=== PATIENT | female | born 1975 | race Caucasian/White ===

== ENCOUNTER 2023-05-25 10:13 | Outpatient (RCR) | payer BC, SELFPAY | END 2023-05-25 23:59 | disposition home or self-care (01) | LOC: RPT 10:13 | PROVIDERS: ATTENDING PHYSICIAN Internal Medicine Rheumatology; FAMILY PHYSICIAN Internal Medicine | DX: M54.2 Cervicalgia (principal); G44.86 Cervicogenic headache; Z73.6 Limitation of activities due to disability | CPT/HCPCS: 97010; 97110; 97112; 97140; 97161; 97530 ==

== ENCOUNTER 2023-06-14 12:02 | Outpatient (RCR) | payer BC, SELFPAY | END 2023-06-14 23:59 | disposition home or self-care (01) | LOC: RPT 12:02 | PROVIDERS: ATTENDING PHYSICIAN Internal Medicine Rheumatology; FAMILY PHYSICIAN Internal Medicine | DX: M54.2 Cervicalgia (principal); G44.86 Cervicogenic headache; Z73.6 Limitation of activities due to disability | CPT/HCPCS: 97010; 97110; 97112; 97140 ==

== ENCOUNTER → 2023-07-12 08:00 | Outpatient (REF) | payer BC, SELFPAY ==
[2023-07-12 09:22] LABS: Urine Albumin Negative (Neg - Trace); Urine Bilirubin Negative (Negative); Urine Character Clear (Clear); Urine Color Yellow; Urine Glucose Negative (Negative); Urine Ketone Negative (Negative); Urine Leukocyte Negative (Negative); Urine Nitrite Negative (Negative); Urine Occult Blood Negative (Negative); Urine Specific Gravity 1.015 (<1.030); Urine Urobilinogen Negative (Neg - 1+); Urine pH 6.5 (5.0-9.0)
[2023-07-12 09:36] LABS: % Basophils 0.8 % (0-2); % Immature Granulocytes 0.3 % (0-0.5); % Lymphocytes 40.6 % (20.5-51.1); % Monocytes 8.4 % (1.7-9.3); % Neutrophils 46.9 % (42.2-75.2); Absolute Eosinophils 0.1 10^3/uL (0-0.7); Absolute Lymphocytes 1.5 10^3/uL (1.2-3.4); Absolute Monocytes 0.3 10^3/uL (0.1-0.6); Absolute Neutrophils 1.7 10^3/uL (1.4-6.5); Hematocrit 40.6 % (37.0-47.0); Hemoglobin 13.5 g/dL (12.0-16.0); Mean Corp Hgb Conc. 33.3 g/dL (33.0-37.0); Mean Corpuscular Hgb 30.7 pg (27.0-31.0); Mean Corpuscular Volume 92.3 fL (81.0-99.0); Mean Platelet Volume 10.6 fL (7.4-10.4); Nucleated Red Blood Cells % 0 %; Platelet Count 186 10^3/uL (130-400); Red Cell Dist. Width 13.9 % (11.5-14.5); White Blood Cell Count 3.7 10^3/uL (4.8-10.8)
[2023-07-12 10:20] LABS: ALT (SGPT) 12 U/L (0-35); AST (SGOT) 24 U/L (14-36); Albumin 4.4 g/dl (3.5-5.0); Alkaline Phosphatase 42 U/L (38-126); Blood Urea Nitrogen 15 mg/dl (7-17); Calcium 9.2 mg/dl (8.4-10.2); Carbon Dioxide 25 mmol/L (22-30); Chloride 101 mmol/L (98-107); Glucose 96 mg/dl (70-99); HDL Cholesterol 90 mg/dl; LDL Cholesterol, Calculated 104 mg/dl; Magnesium 2.1 mg/dl (1.6-2.3); Potassium 4.5 mmol/L (3.5-5.1); Sodium 134 mmol/L (135-145); Total Bilirubin 0.6 mg/dl (0.2-1.3); Total Cholesterol 204 mg/dl (50-199); Triglyceride 52 mg/dl (10-149); Very Low Density Lipoprotein 10 mg/dl (0-30); eGFR > 60.00
[2023-07-12 10:34] LABS: Free T4 0.79 ng/dl (0.78-2.19); Vitamin D, 25-OH*** 33.5 ng/mL (30-80)
[2023-07-12 10:57] LABS: Microalbumin, Random Urine <0.6 mg/dl (0.6-1.7)
[2023-07-12 11:23] LABS: Folate 13.6 ng/ml (2.76-20); Vitamin B12 399 pg/ml (239-931)
[2023-07-12 12:48] LABS: Glycohemoglobin (HgbA1c) 5.7 % (4.0-5.6)
== END ==
LOC: REG 08:00
PROVIDERS: ATTENDING PHYSICIAN Internal Medicine
DX: E06.3 Autoimmune thyroiditis (principal); I10 Essential (primary) hypertension; F32.9 Major depressive disorder, single episode, unspecified; J30.1 Allergic rhinitis due to pollen; I87.2 Venous insufficiency (chronic) (peripheral)
CPT/HCPCS: 36415; 80053; 80061; 81003; 82043; 82306; 82570; 82607; 82746; 83036; 83735; 84439; 84443; 85025

== ENCOUNTER 2023-07-13 10:07 | Outpatient (RCR) | payer BC, SELFPAY | END 2023-07-13 11:12 | disposition home or self-care (01) | LOC: RPT 10:07 | PROVIDERS: ATTENDING PHYSICIAN Internal Medicine Rheumatology; FAMILY PHYSICIAN Internal Medicine | DX: M54.2 Cervicalgia (principal); G44.86 Cervicogenic headache; Z73.6 Limitation of activities due to disability | CPT/HCPCS: 97010; 97110; 97112; 97140 ==

== ENCOUNTER → 2024-01-20 07:33 | Outpatient (REF) | payer BC, SELFPAY ==
[2024-01-20 09:16] LABS: Urine Albumin Negative (Neg - Trace); Urine Bilirubin Negative (Negative); Urine Character Clear (Clear); Urine Color Yellow; Urine Glucose Negative (Negative); Urine Ketone Negative (Negative); Urine Leukocyte Negative (Negative); Urine Nitrite Negative (Negative); Urine Occult Blood Trace (Negative); Urine Specific Gravity 1.025 (<1.030); Urine Urobilinogen Negative (Neg - 1+)
[2024-01-20 09:25] LABS: % Basophils 0.7 % (0-2); % Eosinophils 2.7 % (0-6); % Lymphocytes 41.5 % (20.5-51.1); % Monocytes 9.5 % (1.7-9.3); % Neutrophils 45.6 % (42.2-75.2); Absolute Eosinophils 0.1 10^3/uL (0-0.7); Absolute Lymphocytes 1.7 10^3/uL (1.2-3.4); Absolute Monocytes 0.4 10^3/uL (0.1-0.6); Absolute Neutrophils 1.8 10^3/uL (1.4-6.5); Hematocrit 40.5 % (37.0-47.0); Hemoglobin 13.8 g/dL (12.0-16.0); Mean Corp Hgb Conc. 34.1 g/dL (33.0-37.0); Mean Corpuscular Hgb 31.2 pg (27.0-31.0); Mean Corpuscular Volume 91.6 fL (81.0-99.0); Mean Platelet Volume 10.3 fL (7.4-10.4); Nucleated Red Blood Cells % 0 %; Platelet Count 202 10^3/uL (130-400); Red Blood Cell Count 4.42 10^6/uL (4.20-5.40); Red Cell Dist. Width 13.4 % (11.5-14.5)
[2024-01-20 09:36] LABS: Microalbumin, Random Urine 0.8 mg/dl (0.6-1.7); Microalbumin/creatinine Ratio 4.6 mg/g
[2024-01-20 10:00] LABS: Urine Red Blood Cell 0-2 /HPF (0-2)
[2024-01-20 10:02] LABS: ALT (SGPT) 20 U/L (0-35); AST (SGOT) 25 U/L (14-36); Albumin 4.6 g/dl (3.5-5.0); Alkaline Phosphatase 35 U/L (38-126); Blood Urea Nitrogen 21 mg/dl (7-17); Calcium 8.9 mg/dl (8.4-10.2); Carbon Dioxide 25 mmol/L (22-30); Chloride 104 mmol/L (98-107); Glucose 82 mg/dl (70-99); HDL Cholesterol 88 mg/dl; LDL Cholesterol, Calculated 109 mg/dl; Magnesium 2.2 mg/dl (1.6-2.3); Potassium 4.8 mmol/L (3.5-5.1); Sodium 140 mmol/L (135-145); Total Bilirubin 0.3 mg/dl (0.2-1.3); Total Cholesterol 204 mg/dl (50-199); Total Protein 7.4 g/dl (6.3-8.2); Triglyceride 39 mg/dl (10-149); Very Low Density Lipoprotein 7 mg/dl (0-30); eGFR > 60.00
[2024-01-20 10:15] LABS: Vitamin D, 25-OH*** 37.3 ng/mL (30-80)
[2024-01-20 10:28] LABS: TSH 2.88 uIU/ml (0.47-4.68)
[2024-01-20 10:48] LABS: Vitamin B12 898 pg/ml (239-931)
[2024-01-20 11:27] LABS: Glycohemoglobin (HgbA1c) 4.9 % (4.0-5.6)
== END ==
LOC: REG 07:33
PROVIDERS: ATTENDING PHYSICIAN Internal Medicine
DX: E06.3 Autoimmune thyroiditis (principal); F32.9 Major depressive disorder, single episode, unspecified; J30.1 Allergic rhinitis due to pollen; I10 Essential (primary) hypertension; I87.2 Venous insufficiency (chronic) (peripheral)
CPT/HCPCS: 36415; 80053; 80061; 81003; 81015; 82043; 82306; 82570; 82607; 83036; 83735; 84439; 84443; 85025

== ENCOUNTER → 2024-06-27 12:22 | Outpatient (REF) | payer BC, SELFPAY ==
[2024-06-27 13:04] LABS: % Basophils 0.6 % (0-2); % Eosinophils 1.3 % (0-6); % Immature Granulocytes 0.2 % (0-0.5); % Lymphocytes 35.6 % (20.5-51.1); % Monocytes 7.9 % (1.7-9.3); % Neutrophils 54.4 % (42.2-75.2); Absolute Eosinophils 0.1 10^3/uL (0-0.7); Absolute Lymphocytes 1.7 10^3/uL (1.2-3.4); Absolute Monocytes 0.4 10^3/uL (0.1-0.6); Absolute Neutrophils 2.6 10^3/uL (1.4-6.5); Hematocrit 38.8 % (37.0-47.0); Hemoglobin 13.2 g/dL (12.0-16.0); Mean Corpuscular Hgb 30.9 pg (27.0-31.0); Mean Corpuscular Volume 90.9 fL (81.0-99.0); Mean Platelet Volume 10.1 fL (7.4-10.4); Nucleated Red Blood Cells % 0 %; Platelet Count 167 10^3/uL (130-400); Red Blood Cell Count 4.27 10^6/uL (4.20-5.40); Red Cell Dist. Width 13.5 % (11.5-14.5); White Blood Cell Count 4.7 10^3/uL (4.8-10.8)
[2024-06-27 13:29] LABS: Erythrocyte Sed Rate 8 mm/hour (0-20)
[2024-06-27 13:41] LABS: ALT (SGPT) 33 U/L (0-35); AST (SGOT) 32 U/L (14-36); Albumin 4.8 g/dl (3.5-5.0); Alkaline Phosphatase 42 U/L (38-126); Blood Urea Nitrogen 15 mg/dl (7-17); Calcium 9.4 mg/dl (8.4-10.2); Carbon Dioxide 25 mmol/L (22-30); Chloride 103 mmol/L (98-107); Glucose 82 mg/dl (70-99); Sodium 139 mmol/L (135-145); Total Bilirubin 0.6 mg/dl (0.2-1.3); Total Protein 7.4 g/dl (6.3-8.2); eGFR > 60.00
[2024-06-27 13:43] LABS: C-Reactive Protein < 5.00 mg/L (0.0-10.00)
== END ==
LOC: REG 12:22
PROVIDERS: ATTENDING PHYSICIAN Internal Medicine
DX: M31.6 Other giant cell arteritis (principal)
CPT/HCPCS: 36415; 80053; 85025; 85652; 86140

== ENCOUNTER → 2024-07-20 07:45 | Outpatient (REF) | payer BC, SELFPAY | LOC: WDC 07:45 | PROVIDERS: ATTENDING PHYSICIAN Internal Medicine | DX: Z12.31 Encounter for screening mammogram for malignant neoplasm of breast (principal) | CPT/HCPCS: 77063; 77067 ==

== ENCOUNTER 2025-03-16 10:43 | Emergency (ER) | payer OTHER, SELFPAY ==
[2025-03-16 10:55] VITALS: BP 144/83
[2025-03-16 11:13] LABS: Hematocrit 42.6 % (37.0-47.0); Hemoglobin 14.3 g/dL (12.0-16.0); Mean Corp Hgb Conc. 33.6 g/dL (33.0-37.0); Mean Corpuscular Volume 90.1 fL (81.0-99.0); Nucleated Red Blood Cells % 0 %; Platelet Count 194 10^3/uL (130-400); Red Cell Dist. Width 13.5 % (11.5-14.5)
[2025-03-16 11:27] LABS: ALT (SGPT) 34 U/L (0-35); AST (SGOT) 32 U/L (14-36); Albumin 4.8 g/dl (3.5-5.0); Alkaline Phosphatase 43 U/L (38-126); Blood Urea Nitrogen 13 mg/dl (7-17); Calcium 9.3 mg/dl (8.4-10.2); Carbon Dioxide 28 mmol/L (22-30); Chloride 106 mmol/L (98-107); Glucose 97 mg/dl (70-99); Potassium 4.4 mmol/L (3.5-5.1); Sodium 139 mmol/L (135-145); Total Protein 8.0 g/dl (6.3-8.2); eGFR > 60.00
[2025-03-16] MEDS: TYLENOL 650 MG PO (12:28)
[2025-03-16 12:31] LABS: C-Reactive Protein < 5.00 mg/L (0.0-10.00)
[2025-03-16 12:36] VITALS: BP 138/84
[2025-03-16 13:00] VITALS: BP 138/84
--- NOTE | 2025-03-16 13:04 | CON.NEURO ---
Neuro Assessment/Plan
Assessment
Portia Campoverde is a 49 yo F PMH HTN, cervicalgia presenting with headache.
Symptoms described as progressive moderate pressure in her left retro-orbital and frontal region, associated with photophobia, improved by lying in a dark room. Symptoms most consistent with acute migraine without aura No clear red flag features on
history or exam, apart from new headache onset. Although she appears to have prominent superficial temporal arteries (prompting admission) - several features argues against giant cell arteritis: negative ESR, absence of jaw pain or visual symptoms,
and younger age. Tension type headache also possible. Lower suspicion for other acute causes (e.g. ICH) given gradual progression, although NCHCT reasonable to rule out acute pathology.
Plan
- symptomatic migraine management:
- Normal saline bolus
- Magnesium 2g IV x1 --> if improved, can continue with magnesium 400 mg daily
- Sumatriptan 50 mg PRN --> if improved can continue outpatient (take 1 tablet PRN at onset of migraines, repeat x1 after 10 minutes if not improved)
- If refractory then dexamethasone 10 mg x1 --> if improved, can prescribe methylprednisolone dose pack
- No indication for standing preventative given first migraine
- obtain non-contrast head CT +/- CTAH&N (recent CTA without acute pathology in 2022)
- can likely defer MRI brain for now, but reasonable to consider outpatient
- BP goal normotension
- check EKG, ensure QTC <500
Consultation
Order
Date of Consultation: 03/16/25
Requesting Provider: [facility]
Reason for Consult: Headache
Subjective/Objective
Subjective Data
Date of Service: March 16, 2025
Portia Campoverde is a 49 yo F PMH HTN, cervicalgia presenting with headache.
On the day prior to arrival at 1600, she reported progressive onset headache. She describes symptoms as '6/10' 'dull, aching, pulling, pressure' on the left retro-orbital region, radiating frontal. Symptoms are associated with photophobia, but not
phonophobia, visual aura, jaw claudication, scotoma, nausea, emesis. She reports that her eyes feel 'heavy' but not 'blurry'. She also reports a pulsating sensation in the left side of her head, noting prominent superficial temporal blood vessels.
Symptoms are not worsened with valsalva, non-positional, and did not wake up out of sleep. Symptoms are improved by lying in a dark room but are not improved with acetominophen or celecoxib.
She denies prior history of migraines, including during childhood/teenage years, although was previously evaluated for cervicalagia, treated with PT.
Objective Data
Vital Signs
Temp Pulse Resp BP Pulse Ox
36.9 C 62 18 144/83 100
03/16/25 10:55 03/16/25 10:55 03/16/25 10:55 03/16/25 10:55 03/16/25 10:55
Lab Results
03/16/25 11:05
03/16/25 11:05
Sodium 139 mmol/L (135-145) 03/16/25 11:05
Potassium 4.4 mmol/L (3.5-5.1) 03/16/25 11:05
BUN 13 mg/dl (7-17) 03/16/25 11:05
Glucose 97 mg/dl (70-99) 03/16/25 11:05
Calcium 9.3 mg/dl (8.4-10.2) 03/16/25 11:05
ESR 2
TSH 5.61
Patient Allergies
ciprofloxacin (From Cipro) Allergy (Verified 03/16/25 10:57)
Itching, Rash
NCHCT, CTAH&N (05/12 - 05/13 2022)
Very short segment of approximately 50% stenosis at the junction of left P1 and P2 segments. Otherwise, no CT angiographic abnormality of the arterial structures of the head and neck.
Negative unenhanced brain CT
Past History
Past Medical / Surgical History
Past Medical History: Other (cervicalgia)
Social History
Employment: Employed
Review of Systems
-
All other systems: Reviewed and negative
Physical Exam
-
Awake, alert, and grossly oriented
CN II-XII intact. Fundoscopic exam limited by miosis bilaterally.
Intact strength and sensation in the bilateral upper and lower extremities.
No ataxia on FNF
Tenderness to palpation on the left frontal region.
Data Reviewed
-
CT-A: Report Reviewed and Image Reviewed
CT Head: Report Reviewed and Image Reviewed
CT Cervical Spine: Report Reviewed and Image Reviewed
Labs: Report Reviewed
Medications
-
Home Medications
�Medication �Instructions �Recorded
Multivitamin: 1 tab PO DAILY 01/22/21
cetirizine 10 mg tablet 10 mg PO PRN PRN allergies 01/22/21
venlafaxine 37.5 mg 37.5 mg PO DAILY 01/27/21
capsule,extended release 24 hr
(Effexor XR)
acetaminophen 325 mg tablet 650 mg (2 x 325 mg) PO Q4HPRN PRN 01/28/21
mild pain
[2025-03-16 14:00] VITALS: BP 127/78
[2025-03-16] MEDS: REGLAN 10 MG IV (14:43)
[2025-03-16] MEDS: TORADOL 15 MG IV (14:43)
[2025-03-16] MEDS: BENADRYL 12.5 MG IV (14:43)
[2025-03-16] MEDS: MAGNESIUM SULFATE 102 GRAMS IV (14:44)
[2025-03-16] MEDS: NSS 500 IV (14:44)
[2025-03-16 15:00] VITALS: BP 138/80
--- NOTE | 2025-03-16 15:06 | ED.GENMED ---
History of Present Illness
<Keo Kang MD - Last Filed: 03/16/25 18:33>
General
Chief Complaint: Headache
Source: patient and spouse
Exam Limitations: none
Time Seen by Provider: 03/16/25 12:01
Nursing documentation reviewed up to this point in time: agreed with
History of Present Illness
History of Present Illness:
Patient presents to ED secondary to 24-hour history of persistent/worsening left frontal/temporal headache, along with prominent artery over her moravian, as well as bilateral eyelid swelling sensation with pressure. Denies fever or chills. Denies
dizziness. Denies nausea or vomiting. Denies loss of sensation or weakness. Denies difficulty with speech or swallowing. Denies difficulty with ambulation. Denies recent illness. Denies recent change in medications or diet. Patient has had
history of posterior headache secondary to cervical stenosis, which has required treatment in the past. Today's headache, patient states is different in quality and severity. Denies recent change in activities.
Past History
<Keo Kang MD - Last Filed: 03/16/25 18:33>
Past History
ED Past Medical History: Psychiatric (depression)
ED Past Surgical History: Gynecological (endometrial ablation, hysterectomy, d & c), Tonsilectomy and Other (IVF x 2, saphenous vein ablation right leg)
Social History
Tobacco: Non-smoker
Alcohol: None
Drug: None
Personal:
Living: with family
Review of Systems
<Keo Kang MD - Last Filed: 03/16/25 18:33>
Review of Systems
Allergies reviewed?: Yes
All Other Systems: ROS reviewed and negative except as documented in HPI and ROS
Constitutional: Reports no symptoms; Denies fever or chills
Respiratory: Reports no symptoms
Cardiac: Reports no symptoms
ABD/GI: Reports no symptoms
Musculoskeletal: Reports no symptoms
Skin: Reports no symptoms
Neurological: Reports headache and other (Photophobia)
Phy Exam
<Keo Kang MD - Last Filed: 03/16/25 18:33>
Physical Exam
Physical Exam:
Physical Exam
General: mild painful distress, not acutely ill. afebrile
Head: nc/at. eomi
Neck: supple. normal range of motion
Heart: s1/s2 regular rate and rhythm
Lungs: no acute respiratory distress. clear bilaterally
Abdomen: normal bowel sounds. not tender.
Neuro: alert and oriented x 3. no focal neurological deficits
Skin: no rash
Psychiatric: well kept. interactive and cooperative
Extremities: no edema. no calf tenderness.
Course
<Keo Kang MD - Last Filed: 03/16/25 18:33>
Orders/Labs/Results
Orders:
Orders
03/16/25 11:05
C-Reactive Protein Urgent
Complete Blood Count/With Diff Urgent
Comprehensive Metabolic Panel Urgent
Erythrocyte Sed Rate Urgent
Free T4 Urgent
TSH Reflex To Free T4 Urgent
03/16/25 12:17
Acetaminophen [Tylenol] 650 mg PO NOW STA
03/16/25 12:18
NEUROLOGY CONSULT Urgent
Consulting Provider: Ricki Parker
Was physician already notified: Yes
Reason for consult: headache
03/16/25 14:30
Diphenhydramine [Benadryl] 12.5 mg IV NOW STA
Ketorolac [Toradol] 15 mg IV NOW STA
Metoclopramide [Reglan] 10 mg IV NOW STA
03/16/25 14:31
0.9% Sodium Chloride 500 ml [Nss] 500 ml IV BOLUS
Magnesium Sulfate 1 grams 0.9% Sodium Chloride 100 ml [Nss] 100 ml IV NOW
03/16/25 14:37
Magnesium Sulfate 1 G/D5w [Magnesium Sulfate] 1 gm in 100 ml .ROUTE .STK-MED
Abnormal Lab Results
03/16/25
11:05
WBC 4.2 L 10^3/uL
(4.8-10.8)
TSH (Reflex) 5.61 H uIU/ml
(0.47-4.68)
03/16/25 11:05
03/16/25 11:05
Vital Signs
Initial and Last Documented VS:
Initial Vital Signs
Temp Pulse Resp BP Pulse Ox
98.4 F 62 18 144/83 100
03/16/25 10:55 03/16/25 10:55 03/16/25 10:55 03/16/25 10:55 03/16/25 10:55
Last Documented Vital Signs
Temp Pulse Resp BP Pulse Ox
98.4 F 74 18 138/80 100
03/16/25 10:55 03/16/25 15:30 03/16/25 15:30 03/16/25 15:00 03/16/25 15:30
<Thalia Chaudhari MD - Last Filed: 03/16/25 15:52>
Orders/Labs/Results
Orders:
Orders
03/16/25 11:05
C-Reactive Protein Urgent
Complete Blood Count/With Diff Urgent
Comprehensive Metabolic Panel Urgent
Erythrocyte Sed Rate Urgent
Free T4 Urgent
TSH Reflex To Free T4 Urgent
03/16/25 12:17
Acetaminophen [Tylenol] 650 mg PO NOW STA
03/16/25 12:18
NEUROLOGY CONSULT Urgent
Consulting Provider: Ricki Parker
Was physician already notified: Yes
Reason for consult: headache
03/16/25 14:30
Diphenhydramine [Benadryl] 12.5 mg IV NOW STA
Ketorolac [Toradol] 15 mg IV NOW STA
Metoclopramide [Reglan] 10 mg IV NOW STA
03/16/25 14:31
0.9% Sodium Chloride 500 ml [Nss] 500 ml IV BOLUS
Magnesium Sulfate 1 grams 0.9% Sodium Chloride 100 ml [Nss] 100 ml IV NOW
03/16/25 14:37
Magnesium Sulfate 1 G/D5w [Magnesium Sulfate] 1 gm in 100 ml .ROUTE .STK-MED
Abnormal Lab Results
03/16/25
11:05
WBC 4.2 L 10^3/uL
(4.8-10.8)
TSH (Reflex) 5.61 H uIU/ml
(0.47-4.68)
03/16/25 11:05
03/16/25 11:05
Vital Signs
Initial and Last Documented VS:
Initial Vital Signs
Temp Pulse Resp BP Pulse Ox
98.4 F 62 18 144/83 100
03/16/25 10:55 03/16/25 10:55 03/16/25 10:55 03/16/25 10:55 03/16/25 10:55
Last Documented Vital Signs
Temp Pulse Resp BP Pulse Ox
98.4 F 74 18 138/80 100
03/16/25 10:55 03/16/25 15:30 03/16/25 15:30 03/16/25 15:00 03/16/25 15:30
<Keo Kang MD - Last Filed: 03/16/25 18:33>
MDM/Problems Addressed
MDM/Problems Addressed:
Patient evaluated in ED by neurology, . Does not feel the symptoms are consistent with giant cell arteritis, more likely secondary to potential migraine headache. As such, recommend treating patient symptomatically, along with
outpatient treatment via sumatriptan as needed. In addition, recommends discussing with vascular surgeon as an outpatient, regarding what appears to be intermittent chronic temporal artery.
Patient otherwise remains afebrile, hemodynamically stable, and neurologically intact. Patient will be treated with medications, i.e. Reglan, Benadryl, Toradol, and IV fluids, and will be reassessed.
<Keo Kang MD - Last Filed: 03/16/25 18:33>
*Pulse Oximetry
SaO2: 100
Oxygen Mode of Delivery: Room air
Patient hypoxic: no
*Critical Care Note
Total Time (30-74mins, 75-104mins- exclusive of procedures): Not Applicable
<Thalia Chaudhari MD - Last Filed: 03/16/25 15:52>
Update Note
Update Note:
3:51 PM patient seen in signout, pain is now a 2 out of 10, manageable, would like to be discharged. Discussed with patient and who is bedside. No new symptoms.
ED Attending Note
<Keo Kang MD - Last Filed: 03/16/25 18:33>
-
Portions of this chart may have been created with voice recognition software.� Occasional wrong word or��sound alike� substitutions may have occurred due to the inherent limitations of voice recognition software.
Discharge Plan
Departure
Patient Disposition: Home (Routine Discharge)
Date of Disposition: 03/16/25
Time of Disposition: 15:51
Patient with high blood pressure during this ER visit?: Yes
Discharge Problem:
Headache
Instructions: Headache, Adult (DC)
Prescriptions:
New
sumatriptan succinate 50 mg tablet
50 mg PO ONCE PRN (Reason: migraine headache) Qty: 10 0RF
No Action
cetirizine 10 MG tablet
10 mg PO PRN PRN (Reason: allergies)
Multivitamin:
1 tab PO DAILY
venlafaxine [Effexor XR] 37.5 MG capsule,extended release 24hr
37.5 mg PO DAILY
acetaminophen 325 MG tablet
650 mg PO Q4HPRN PRN (Reason: mild pain) 0RF
Referrals:
Boselli,Miguel M., MD [Family Provider, Internal Medicine]
Activity Restrictions/Additional Instructions:
As discussed, please follow-up with your primary care physician for reevaluation. Please consider return to ED with worsening symptoms. Your prescription has been sent electronically to [facility] pharmacy in [place].
Interventions
Interventions:
*General Assessment Last Done: 03/16/25 10:58
*Neglect/Abuse Screening Last Done: 03/16/25 10:58
*ED COVID-19 Vaccine History Last Done: 03/16/25 10:58
*ED Influenza Vaccine History Last Done: 03/16/25 10:58
[facility] Risk Assessment Tool Last Done: 03/16/25 15:57
*Risk Screen - Suicide (C-SSRS) Last Done: 03/16/25 10:58
*Nursing Disposition Last Done: 03/16/25 15:57
ED- Neurological Assessment Last Done: 03/16/25 13:49
Discharge Date and Time
Discharge Date/Time: 03/16/25 15:58
Print Language: [place]
== END 2025-03-16 15:58 | disposition home or self-care (01) ==
LOC: EMR 10:43
PROVIDERS: CONSULT PHYSICIAN Student in an Organized Health Care Education/Training Program; EMERGENCY PHYSICIAN Emergency Medicine; FAMILY PHYSICIAN Internal Medicine
DX: R51.9 Headache, unspecified (principal); I10 Essential (primary) hypertension; Z88.1 Allergy status to other antibiotic agents; Z90.710 Acquired absence of both cervix and uterus
CPT/HCPCS: 99284; 96365; 96375; 80053; 84439; 84443; 85025; 85652; 86140